=== PATIENT | female | born 1990 | race Caucasian/White ===

== ENCOUNTER 2018-06-05 13:04 | Outpatient (REF) | payer OTHER, SELFPAY | END 2018-06-05 13:05 | LOC: LBN 13:04 | PROVIDERS: PCP Family Medicine; Visit Provider Midwife | DX: Z34.83 Encounter for supervision of other normal pregnancy, third trimester (principal); Z36.85 Encounter for antenatal screening for Streptococcus B | CPT/HCPCS: 87081 ==

== ENCOUNTER 2018-06-25 14:11 | Outpatient (CLI) | payer OTHER, SELFPAY ==
[2018-06-25 14:33] LABS: Abs Immature Grans 0.02 k/cumm (0.0-0.09); Absolute Basophil Count 0.01 k/cumm (0.0-0.2); Absolute Eosinophil Count 0.03 k/cumm (0.0-0.7); Absolute Lymphocyte Count 1.66 k/cumm (1.2-3.4); Basophils % 0.2; Eosinophils % 0.5; HGB 10.7 g/dL (12.0-15.5); Immature Grans % 0.3; Lymphocytes % 27.1; Mean Corp. HGB Concentration 31.5 g/dL (32.0-36.0); Mean Corpuscular Hemoglobin 25.1 pg (27.0-33.0); Mean Corpuscular Volume 79.8 fL (80-95); Mean Platelet Volume 10.3 fL (8.0-11.0); Monocytes % 6.5; Neutrophils % 65.4; Platelet Count 141 x1000/uL (130-400); RBC 4.26 m/cumm (4.00-5.20); RBC Distribution Width 13.6 % (11.7-14.6); White Blood Cell Count 6.12 k/cumm (4.4-10.8)
[2018-06-25 14:46] LABS: PTT Activated 24.1 sec (21.0-31.4); Prothrombin Time 9.4 sec (9.3-10.8)
== END 2018-06-25 14:31 ==
PROVIDERS: PCP Family Medicine; Visit Provider Midwife
DX: Z34.91 Encounter for supervision of normal pregnancy, unspecified, first trimester (principal)
CPT/HCPCS: 36415; 85025; 85610; 85730

== ENCOUNTER 2018-07-01 03:12 | Inpatient (IN) | payer OTHER, SELFPAY ==
[2018-07-01 03:49] LABS: HCT 36.4 % (36.0-46.0); HGB 11.8 g/dL (12.0-15.5); Mean Corp. HGB Concentration 32.4 g/dL (32.0-36.0); Mean Corpuscular Hemoglobin 25.6 pg (27.0-33.0); Mean Platelet Volume 10.3 fL (8.0-11.0); Platelet Count 135 x1000/uL (130-400); RBC 4.61 m/cumm (4.00-5.20); RBC Distribution Width 13.9 % (11.7-14.6); White Blood Cell Count 7.89 k/cumm (4.4-10.8)
[2018-07-01] MEDS: Lactated Ringers 1,000 ML 125 ML IV (04:35)
[2018-07-01] MEDS: Ibuprofen 600 MG TAB PO ×2 (07:27→15:49)
[2018-07-01] MEDS: Acetaminophen 325 MG TAB 650 MG PO ×2 (11:52→20:18)
[2018-07-02] MEDS: Ibuprofen 600 MG TAB PO ×2 (00:49→10:36)
[2018-07-02] MEDS: Acetaminophen 325 MG TAB 650 MG PO (00:50)
[2018-07-02 07:19] LABS: HCT 32.5 % (36.0-46.0); HGB 10.1 g/dL (12.0-15.5); Mean Corp. HGB Concentration 31.1 g/dL (32.0-36.0); Mean Corpuscular Hemoglobin 25.2 pg (27.0-33.0); Mean Platelet Volume 10.7 fL (8.0-11.0); Platelet Count 132 x1000/uL (130-400); RBC 4.01 m/cumm (4.00-5.20); RBC Distribution Width 14.1 % (11.7-14.6); White Blood Cell Count 8.96 k/cumm (4.4-10.8)
== END 2018-07-02 12:20 | disposition home or self-care (01) | DRG 775 ==
PROVIDERS: Admitting Provider Midwife; PCP Family Medicine; Visit Provider Advanced Practice Midwife
DX: O48.0 Post-term pregnancy (principal); O70.1 Second degree perineal laceration during delivery; Z37.0 Single live birth; Z3A.40 40 weeks gestation of pregnancy
CPT/HCPCS: 36415; 85027; 86850; 86900; 86901

== ENCOUNTER 2021-06-27 12:08 | Outpatient (CLI) | payer MEDICAID, SELFPAY ==
--- NOTE | 2021-06-27 | DI.US_ITS ---
Exam(s) US OB 2-3 TRIMESTER EXAM: US OB 2-3 TRIMESTER CLINICAL HISTORY: Evaluate placenta and location. TECHNIQUE: Transabdominal obstetrical ultrasound was performed. COMPARISON: US OB US 2-3 TRIMESTER TRANSABD*P from 02/06/2018 FINDINGS: There is a single viable intrauterine gestation with cardiac activity identified-137 bpm. Amniotic fluid: There is a normal amount of amniotic fluid. CY = 15.1 cm Placental location: The placenta is posterior grade 1,with no evidence of placenta previa.Distance fr om the tip of the placenta to the internal cervical os is 7 cm on today's study. There is no evidenc e of obvious placental abruption. Cervical length is 4.3 cm anatomy and dating were not performed IMPRESSION:: Single viable intrauterine gestation. Normal amount of amniotic fluid. Posterior plac enta. No evidence of placenta previa. No obvious placental abruption. DATA REPOSITORY:
[2021-06-27 10:00] VITALS: BP 120/70; PULSE 76; RESP 16; TEMP 36.5
--- NOTE | 2021-06-27 10:40 | OBCE_ITS ---
Date of service: 06/27/21 Time of Service: 10:40 Assessment and Plan Assessment and plan (1) Second trimester bleeding: Status: Acute Assessment and plan: Patient had an episode of post coital bleeding on Friday and some vaginal bleeding today. Exam is completely benign. She does appear to have yeast vaginitis. Prescription for Diflucan sent to the pharmacy. Ultrasound confirming posterior fundal placenta with cervical length that is approximate 4.5 cm and closed. Otherwise normal anatomy noted. She will be discharged home. She will rest for the day today. She instructed to report back if she has further symptoms, and also contact her primary OB group which is at [place] as well. (2) Yeast vaginitis: Status: Acute History of Present Illness History of Present Illness Chief Complaint: spotting at 21 weeks Narrative: Patient is a 31-year-old 4 para 2-0-1-2 at 21 weeks and 3 days. 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 She was noted to have some spotting today. She has had no cramping. Otherwise this has been uncomplicated. She did have an episode of spotting on Friday related to intercourse. She is having no other symptoms. Baby is moving and active. She denies fevers or chills. Bowel and bladder habits are normal. She has care at [facility] in [place] due to closer proximity there than here. She has had 2 previous uncomplicated vaginal deliveries, the second being relatively precipitous. She denies recent trauma. She has no unusual habits. Review of Systems All systems reviewed & are unremarkable except as noted in HPI and below Eyes Eyes: Reports system reviewed and no additional complaints, except as documented Cardiovascular Cardiovascular: Reports system reviewed and no additional complaints, except as documented Respiratory Respiratory: Reports system reviewed and no additional complaints, except as documented Gastrointestinal Gastrointestinal: Reports system reviewed and no additional complaints, except as documented, Denies diarrhea, Denies nausea and Denies vomiting Musculoskeletal Musculoskeletal: Reports system reviewed and no additional complaints, except as documented Neurologic Neurologic: Reports system reviewed and no additional complaints, except as documented [facility] Medical History (Updated 06/27/21 @ 10:43 by Cara Feldman DO) Second trimester bleeding Yeast vaginitis Social History Smoking/Tobacco Use Status: Former Tobacco Use Quit Date: 01/04/15 Smoking risk assessment performed?: Yes Alcohol Intake: never Drug use: Never Substance use type: does not use Foster care: No Household members: spouse and children Housing: house Number of Children: 1 current occupation: SENIOR POWER PLANT OPERATOR @ [employer] Do you think of yourself as: straight/heterosexual Current gender identity: female Special mario needs: No Seatbelt use: always History History 3 Para Hx # Term Pregnancies Multiple births Hx # Pregnancies Ectopic pregnancies AB induced Hx Number of Living Children AB spontaneous Exam Const General: cooperative, healthy appearing, comfortable, no acute distress, well developed and well groomed Resp Effort & Inspection: normal respiratory effort GI Inspection: normal to inspection Palpation: soft, not firm and no guarding Speculum Exam - Vagina: no foreign bodies and vaginal bleeding OB/External & Speculum: no bleeding, no foreign bodies, vaginal bleeding and vaginal discharge (Consistent with yeast) Manual OB Exam: dilated (Visually closed) Extrem General: no clubbing, cyanosis or edema Results Imaging Additional studies: Ultrasound performed in the radiology department confirmed a viable intrauterine with heart tones of 140s. CY is 15. Placenta is fundal and posterior approximately 7 cm from the cervical os. Cervical length is 4.5 cm and visually closed. No pathology noted. Reviewed ultrasound findings and discussed with radiology.
== END 2021-06-27 12:09 | disposition home or self-care (01) ==
LOC: BCD 07-04 12:09
PROVIDERS: PCP Family Medicine; Visit Provider Obstetrics & Gynecology
DX: O26.852 Spotting complicating pregnancy, second trimester (principal); O23.592 Infection of other part of genital tract in pregnancy, second trimester; B37.3 Candidiasis of vulva and vagina; Z3A.21 21 weeks gestation of pregnancy
CPT/HCPCS: 76805

== ENCOUNTER 2021-08-15 10:47 | Outpatient (CLI) | payer MEDICAID, SELFPAY ==
[2021-08-15 10:56] VITALS: BP 112/65; PULSE 100; TEMP 37.7
[2021-08-15 11:07] VITALS: BP 112/65; PULSE 100; RESP 18; TEMP 37.7
[2021-08-15] MEDS: Lactated Ringers 1,000 ML 125 ML IV (12:10)
[2021-08-15] MEDS: Betamet Acet/Betamet Na Ph Inj. 30 MG/5 ML 12 MG IM (12:20)
[2021-08-15] MEDS: MAGNESIUM SULFATE 20 GM/500 ML BAG IV (12:20)
--- NOTE | 2021-08-15 12:26 | HPE_ITS ---
Date of service: 08/15/21 Time of Service: 12:52 Assessment and Plan Assessment and plan (1) labor: Start date: 08/15/21 Start time: 08:00 Status: Acute Assessment and plan: Transfer to [facility] accepted. Given Betamethasone for lung maturity Started on Magnesium sulfate 4g loading dose, then 2g/hr Given indomethacin 50mg PO OB-HPI Labor/Delivery History of Present Illness Reason for Visit: NST Chief Complaint: Uterine Contractions (Woke at 5:45 feeling uncomfortable/achey w/some BH, then fell back asleep x1.5hrs. Some BH after waking/on way to work here. Then started timing and they seemed stronger/closer together. No LOF or unusual discharge. No bleeding. Less FM. ). DORCAS Calculator Estimated Delivery Date Method Current WG Current Estimate 11/03/21 Manual 28w 4d per pt History of Present Expected Delivery Route/Plan - care at [facility] FOB Jimmie Goes by Robina Specific Issues/Plan 1. First baby had low 1' , responded well to resus, very frightening experience for pt 2. First baby was tongue-tied requiring clipping. 3. Bleeding @21wks x2 (one was post-coital). Dx'd with yeast. Cx length was 4.5/closed, placenta fundal and posterior. -No further episodes. 4. PTL @28.4wks (08/15/21). Cx: 2/80/-1/bulgy. Vtx on bedside sono. 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[employer] Do you think of yourself as: straight/heterosexual Current gender identity: female Special mario needs: No Seatbelt use: always History History 3 Para 2 Hx # Term Pregnancies 2 Multiple births Hx # Pregnancies Ectopic pregnancies AB induced Hx Number of Living Children 2 AB spontaneous Meds Allergies and Home Medications Allergies Allergy/AdvReac Type Severity Reaction Status Date / Time venom-honey bee Allergy Intermediate Unverified 06/29/18 11:29 Home Medications Medication Instructions Recorded Confirmed Type PNV [id number] oil 1 ea PO tab.chew 12/23/17 08/17/18 History [ Gummies] docusate sodium [Colace] 100 mg PO PRN 12/24/17 08/17/18 History cholecalciferol (vitamin D3) 125 5,000 unit PO DAILY #90 cap 08/17/18 08/17/18 Rx mcg (5,000 unit) capsule fluconazole [Diflucan] 150 mg PO ONCE #1 tab 06/27/21 Rx Exam Physical Exam Narrative: Pt visibly uncomfortable with contractions. Detailed Labor and Delivery Exam Dilation: 2 Effacement (%): 80 station: -1 Cervix position: mid Consistency: soft Hdz Score: Cervical Points Exam 0 1 2 3 Dilation Closed 1-2cm 3-4 cm 5-6cm Effacement 0-30% 40-50% 60-70% 80% Consistency Firm Medium Soft Station -3 -2 -1,0 +1,+2 Position Posterior Mid Anterior HDZ Score(Cervical Ripeness Score): 8 Contraction Frequency(min): q2-6 Contraction Intensity: Mild/Moderate Comments: No pooling. FFN and affirm collected but not sent s/p digital exam findings. Fetus A Heart Rate Baseline: 140 Monitor Accelerations: 10 X 10 Monitor Decelerations: Variable (intermittent) Variability: Moderate (6-25 BPM) Presentation: Vertex (by sono) Categories: Category I Detailed HEENT Exam Head: Present normocephalic and atraumatic Respiratory Exam Respiratory Exam: Normal Risk Assessment Risks Reviewed Risks Reviewed Upon Admission: Yes
[2021-08-15] MEDS: INDOMETHACIN 50 MG CAP PO (12:30)
== END 2021-08-15 12:40 | disposition short-term general hospital (02) ==
LOC: BCD 10:49 → OBS 10:54
PROVIDERS: PCP Family Medicine; Visit Provider Obstetrics & Gynecology Gynecology
DX: O60.03 Preterm labor without delivery, third trimester (principal); Z3A.28 28 weeks gestation of pregnancy
CPT/HCPCS: 59025; G0378; J0702; J3475

== ENCOUNTER 2023-12-29 11:34 | Outpatient (REF) | payer MEDICAID, SELFPAY ==
[2023-12-30 14:20] LABS: Chlamydia Result Negative (Negative); GC Result Negative (Negative)
== END 2023-12-29 11:35 | disposition home or self-care (01) ==
LOC: LBN 11:34
PROVIDERS: PCP Family Medicine; Visit Provider Nurse Practitioner Women's Health
DX: N76.0 Acute vaginitis (principal); Z11.3 Encounter for screening for infections with a predominantly sexual mode of transmission
CPT/HCPCS: 87491; 87591; 87480; 87510; 87660